=== PATIENT | male | born 1930 | race Caucasian/White ===

== ENCOUNTER 2016-08-15 07:59 | Day surgery (SDC) | payer MEDICARE, BC ==
[~2016-08-15] VITALS: Ht 182.9 cm; Wt 46.2 kg
[~2016-08-15 07:59] MED LIST: APRESOLINE 25MG25 MG PO; ASPIRIN 81M81 MG/TA2 PO; BACTRIM DS 8001 TAB PO; CATAPRES 0.1MG0.1 MG PO; CEPHALEXIN500 M1 PO; FLONASEALLERGY NS; GLUCOTROL 5M5 MG/TAB PO; IMDUR 30MG30 MG/TAB PO; IPRATROPIUM BROM3 M1 IH; K-DUR 10 MEQ T10 MEQ PO; KLOR-CON M2020 MEQ PO; LASIX 20MG TABL20 MG PO; LASIX 40MG TABL40 MG PO; LIPITOR20 MG PO; LOPRESSOR 225 MG/TAB PO; MICRO-K 1010 MEQ PO; NORCO 325 MG-51 TAB PO; NORVASC 10MG10 MG PO; OXYGEN; PLAVIX 75MG TAB75 MG PO; PRINIVIL10 MG PO; PRINIVIL40 MG PO; PRINIVIL5 MG PO; PROAIR HFA0.09 MG/AC IH; TOPROL XL 25MG25 MG PO; ZOCOR 40MG40 MG PO
[2016-08-15 08:58] VITALS: BP 179/70; PULSE 64; TEMP 97
[2016-08-15] MEDS ORDERED: ASPI325T6 PO (09:11)
[2016-08-15 10:30] VITALS: BP 172/64; PULSE 71
[2016-08-15 10:45] VITALS: BP 172/66; PULSE 63
[2016-08-15 11:00] VITALS: BP 170/59; PULSE 60
[2016-08-15 13:13] LABS: PLEURAL FLUID - PMN 12.6 % (0-25)
[2016-08-15 13:21] LABS: PLEURAL FLUID RIGHT SIDE; PLEURAL FLUID APPEARANCE HAZY; PLEURAL FLUID COLOR YELLOW
[2016-08-15 13:34] LABS: GLUCOSE,PLEURAL FLUID 108 mg/dL
[2016-08-15 14:38] VITALS: BP 144/68; PULSE 56
== END 2016-08-15 11:20 | disposition home or self-care (01) ==
LOC: SDCO 07:59
PROVIDERS: Internal Medicine Pulmonary Disease
DX: R06.02 Shortness of breath (principal); R05 Cough; R09.89 Other specified symptoms and signs involving the circulatory and respiratory systems; J90 Pleural effusion, not elsewhere classified; I50.9 Heart failure, unspecified; Z87.01 Personal history of pneumonia (recurrent); I27.2 Other secondary pulmonary hypertension; Z87.891 Personal history of nicotine dependence; Z79.899 Other long term (current) drug therapy; Z79.02 Long term (current) use of antithrombotics/antiplatelets; Z99.81 Dependence on supplemental oxygen; J44.9 Chronic obstructive pulmonary disease, unspecified; I10 Essential (primary) hypertension; I25.10 Atherosclerotic heart disease of native coronary artery without angina pectoris; E11.9 Type 2 diabetes mellitus without complications; Z79.84 Long term (current) use of oral hypoglycemic drugs; I35.0 Nonrheumatic aortic (valve) stenosis
CPT/HCPCS: J2704; J7120

== ENCOUNTER 2017-12-07 08:26 | Day surgery (SDC) | payer MEDICARE, BC ==
[~2017-12-07] VITALS: Ht 182.9 cm; Wt 95.9 kg
[~2017-12-07 08:26] MED LIST changes: +ASPI325T6 PO
[2017-12-07 09:39] VITALS: BP 155/61; PULSE 72; TEMP 97.1
[2017-12-07] MEDS ORDERED: PRINIVIL5 MG PO (09:56)
[2017-12-07] MEDS ORDERED: CALMOSEPTINE OI71 GM TP (09:58)
[2017-12-07] MEDS ORDERED: FLONASEALLERGY NS (09:59)
[2017-12-07] MEDS ORDERED: MAALOX ADVANCE148 ML PO ×2 (10:00→10:25)
[2017-12-07] MEDS ORDERED: GOOD NEIGH1200 MG/15 PO (10:00)
[2017-12-07] MEDS ORDERED: NORCO 325 MG-51 TAB PO ×2 (10:01→10:24)
[2017-12-07] MEDS ORDERED: PLAVIX 75MG TAB75 MG PO (10:01)
[2017-12-07] MEDS ORDERED: RISPERDAL 0.5M0.5 MG PO (10:03)
[2017-12-07] MEDS ORDERED: TOPROL XL 25MG25 MG PO (10:04)
[2017-12-07] MEDS ORDERED: ZOLOFT 50MG50 MG PO (10:16)
[2017-12-07] MEDS ORDERED: LASIX 40MG TABL40 MG PO (10:17)
[2017-12-07] MEDS ORDERED: DESYREL 50MG50 MG PO (10:17)
[2017-12-07] MEDS ORDERED: ASPIRIN 81M81 MG/TA2 PO (10:18)
[2017-12-07] MEDS ORDERED: VITAMIN B12 681 TAB PO (10:19)
[2017-12-07] MEDS ORDERED: GLUCOTROL 5M5 MG/TAB PO (10:20)
[2017-12-07] MEDS ORDERED: ZYLOPRIM 100MG100 MG PO (10:21)
[2017-12-07] MEDS ORDERED: LIPITOR20 MG PO (10:22)
[2017-12-07] MEDS ORDERED: K-DUR 10 MEQ T10 MEQ PO (10:23)
[2017-12-07] MEDS ORDERED: TYLENOL 325MG325 MG PO (10:24)
[2017-12-07] MEDS ORDERED: MULTIPLE VITAMI1 CAP PO (10:26)
[2017-12-07] MEDS ORDERED: DULCOLAX S10 MG/SUPP RC (10:26)
[2017-12-07 11:03] VITALS: BP 167/61; PULSE 61; TEMP 99.1
[2017-12-07] MEDS ORDERED: CEPHALEXIN500 M1 PO (11:48)
[2017-12-07 16:38] VITALS: BP 168/73; PULSE 70
== END 2017-12-07 12:05 | disposition home or self-care (01) ==
LOC: SDCO 08:26
DX: Z48.03 Encounter for change or removal of drains (principal)

== ENCOUNTER 2018-04-05 14:59 | Emergency (ER) | payer MEDICARE, BC ==
[~2018-04-05] VITALS: Ht 182.9 cm; Wt 95.9 kg
[~2018-04-05 14:59] MED LIST changes: +CALMOSEPTINE OI71 GM TP; +DESYREL 50MG50 MG PO; +DULCOLAX S10 MG/SUPP RC; +GOOD NEIGH1200 MG/15 PO; +MAALOX ADVANCE148 ML PO; +MULTIPLE VITAMI1 CAP PO; +RISPERDAL 0.5M0.5 MG PO; +TYLENOL 325MG325 MG PO; +VITAMIN B12 681 TAB PO; +ZOLOFT 50MG50 MG PO; +ZYLOPRIM 100MG100 MG PO
[2018-04-05 16:24] LABS: BASO % 0.2 % (0.0-2.0); EOS # 0.2 (0.0-0.7); EOS % 1.7 % (0-4.0); GRAN % 84.4 % (42.2-75.2); LYMPH # 0.2 (1.2-3.4); LYMPH % 2.1 % (20.0-51.0); MEAN CELL VOLUME 89 fl (80.0-100.0); MEAN CORPUSCULAR HGB CONC 30 g/dl (33.0-37.0); MEAN PLATELET VOLUME 9.1 fl (7.4-10.4); MONO # 1.1 (0.1-0.6); MONO % 10.8 % (1.7-9.3); PLATELET COUNT 327 K/mm3 (130-400); RED BLOOD COUNT 2.18 M/mm3 (4.20-5.60); REDCELL DISTRIBUTION WIDTH-CV 19.5 % (11.5-14.5)
[2018-04-05 16:30] LABS: HEMATOCRIT 19.5 % (42.0-52.0); HEMOGLOBIN 5.9 g/dl (13.5-18.0); MEAN CORPUSCULAR HEMOGLOBIN 27 pg (27.0-31.0)
[2018-04-05 16:34] LABS: ALBUMIN 3.4 gm/dL (3.5-5.0); BILIRUBIN,TOTAL 0.2 mg/dL (0.0-1.0); C-REACTIVE PROTEIN 1.7 mg/dL (0.0-0.9); CREATININE, serum 2.73 mg/dL (0.66-1.25); POTASSIUM 5.4 mmol/L (3.4-5.0); TOTAL PROTEIN 6.7 gm/dL (6.4-8.2)
[2018-04-05 16:50] LABS: COLLECTION METHOD CLEAN CATCH
[2018-04-05 16:57] LABS: MUCOUS Present /lpf; PH 5 (5-8); SQUAMOUS EPITHELIAL None Seen /hpf; URINE APPEARANCE Clear; URINE BACTERIA None Seen /hpf; URINE BILIRUBIN Negative (NEGATIVE); URINE BLOOD Negative (NEGATIVE); URINE COLOR Straw; URINE GLUCOSE Negative (NEGATIVE); URINE KETONE Negative (NEGATIVE); URINE LEUKOCYTE ESTERASE Negative (NEGATIVE); URINE NITRATE Negative (NEGATIVE); URINE PROTEIN(semi-quant) Negative (NEGATIVE); URINE RBC None Seen /hpf; URINE UROBILINOGEN Negative (NEGATIVE)
[2018-04-05 16:58] LABS: ARTERIAL BLD GAS O2 SATURATION 25.2 % (92-100); ARTERIAL BLD GAS TCO2 CT 27.8; ARTERIAL BLOOD GAS BASE EXCESS -0.8 (-2-2); ARTERIAL BLOOD GAS PCO2 56.3 mmHg (35-45)
[2018-04-05 17:00] LABS: ARTERIAL BLOOD GAS PO2 18.8 mmHg (80-100)
[2018-04-05 17:01] LABS: ARTERIAL BLOOD GAS pH 7.28 (7.35-7.45)
[2018-04-05] MEDS ORDERED: LOPRESSOR 225 MG/TAB PO (17:04)
[2018-04-05] MEDS ORDERED: MUCINEX 60600 MG/TA1 PO (17:04)
[2018-04-05] MEDS ORDERED: GLUCOTROL 5M5 MG/TAB PO (17:05)
[2018-04-05] MEDS ORDERED: ALDACTONE 25MG25 M1 PO (17:05)
[2018-04-05] MEDS ORDERED: LASIX 40MG TABL40 MG PO (17:06)
[2018-04-05] MEDS ORDERED: PLAVIX 75MG TAB75 MG PO (17:07)
[2018-04-05] MEDS ORDERED: PRINIVIL5 MG PO (17:07)
[2018-04-05] MEDS ORDERED: MICRO-K 10 EXT10 MEQ PO (17:08)
[2018-04-05] MEDS ORDERED: ASPIRIN 81M81 MG/TA2 PO (17:08)
[2018-04-05] MEDS ORDERED: FLONASE NASAL S16 GM NS (17:11)
[2018-04-05] MEDS ORDERED: NAMENDA 10MG TA10 MG PO ×2 (17:11→17:21)
[2018-04-05] MEDS ORDERED: ZYPREXA2.5 MG PO (17:12)
[2018-04-05] MEDS ORDERED: PRISTIQ100 MG PO (17:12)
[2018-04-05] MEDS ORDERED: MIRALAX PA17 GM/Dose PO (17:13)
[2018-04-05] MEDS ORDERED: FIBERCON (17:13)
[2018-04-05] MEDS ORDERED: VITAMIN C500 MG PO (17:13)
[2018-04-05] MEDS ORDERED: PHARMASSURE ZIN50 MG PO (17:14)
[2018-04-05 17:15] LABS: ERYTHROCYTE SEDIMENTATION RATE > 140 mm/hr (0-30)
[2018-04-05] MEDS ORDERED: ARGININE (17:15)
[2018-04-05] MEDS ORDERED: FERROUS SU325 MG/TAB PO (17:20)
[2018-04-05] MEDS ORDERED: MULTI VITAMINS1 TAB PO (17:20)
[2018-04-05] MEDS ORDERED: ZYPREXA 5MG5 MG PO ×2 (17:22→17:23)
[2018-04-05] MEDS ORDERED: DESYREL 100MG100 MG PO (17:26)
[2018-04-05] MEDS ORDERED: KLONOPIN 0.5MG0.5 MG PO (17:26)
[2018-04-05] MEDS ORDERED: ATIVAN 0.50.5 MG/TAB PO (17:27)
[2018-04-05] MEDS ORDERED: TYLENOL 325MG325 MG PO (17:28)
[2018-04-05] MEDS ORDERED: GENTLE LAXATIVE10 MG RC (17:28)
[2018-04-05] MEDS ORDERED: GOOD NEIGH1200 MG/15 (17:28)
[2018-04-05] MEDS ORDERED: TYLENOL 500MG500 MG PO (17:29)
[2018-04-05] MEDS ORDERED: NORCO 325 MG-51 TAB PO (17:29)
[2018-04-05 19:43] VITALS: BP 122/47; TEMP 97.2
[2018-04-05 20:00] VITALS: PULSE 84
== END 2018-04-05 20:00 | disposition short-term general hospital (02) ==
LOC: COL.ER 14:59
PROVIDERS: Emergency Medicine
DX: I96 Gangrene, not elsewhere classified (principal); D64.9 Anemia, unspecified; R55 Syncope and collapse; N19 Unspecified kidney failure; I48.91 Unspecified atrial fibrillation; E87.2 Acidosis; F03.90 Unspecified dementia, unspecified severity, without behavioral disturbance, psychotic disturbance, mood disturbance, and anxiety; I25.10 Atherosclerotic heart disease of native coronary artery without angina pectoris; I50.9 Heart failure, unspecified; Z85.72 Personal history of non-Hodgkin lymphomas; Z95.5 Presence of coronary angioplasty implant and graft; Z95.0 Presence of cardiac pacemaker; Z98.890 Other specified postprocedural states; Z79.51 Long term (current) use of inhaled steroids
CPT/HCPCS: C9113; J7030; P9016